=== PATIENT | male | born 1995 | race Caucasian/White ===

== ENCOUNTER 2020-05-27 07:28 | Emergency (ER) | payer BC ==
--- NOTE | 2020-05-27 08:01 | EDM.PDOC ---
ED HPI GENERAL MEDICAL PROBLEM - General Chief Complaint: Allergic Reaction Time Seen by Provider: 05/27/20 07:47 Source of Information: Reports: Patient, Family, RN Notes Reviewed History Limitations: Reports: No Limitations - History of Present Illness INITIAL COMMENTS - FREE TEXT/NARRATIVE: 25-year-old gentleman presents emergency department today with concern about allergic reaction he is developed some tingling on the left side of his face is been going on for 24 hours he denies any new medications denies any exposure denies any recent bug bites has no known allergies takes no medications himself. He is currently under a stressful situation as his dad recently a couple days ago. Left Face/Facial Pain Score (Numeric/FACES): 2 - Related Data Allergies Allergy/AdvReac Type Severity Reaction Status Date / Time No Known Allergies Allergy Verified 05/27/20 07:41 Home Meds: Home Meds NK [No Known Home Meds] 05/27/20 [History] Past Medical History Neurological History: Reports: Concussion - Past Surgical History Head Surgeries/Procedures: Reports: None Neurological Surgical History: Reports: None Dermatological Surgical History: Reports: None Social & Family History - Tobacco Use Smoking Status *Q: Never Smoker Second Hand Smoke Exposure: No - Caffeine Use Caffeine Use: Reports: Coffee - Recreational Drug Use Recreational Drug Use: No ED ROS ALLERGIC REACTION - Review of Systems Review Of Systems: See Below Constitutional: Reports: No Symptoms HEENT: Reports: No Symptoms Respiratory: Reports: No Symptoms Cardiovascular: Reports: No Symptoms GI/Abdominal: Reports: No Symptoms Skin: Denies: Rash Neurological: Reports: Tingling ED EXAM GENERAL NO PERIP PULSE - Physical Exam Exam: See Below Exam Limited By: No Limitations General Appearance: Alert, WD/WN, No Apparent Distress Eye Exam: Bilateral Eye: Normal Inspection, PERRL Nose: Normal Inspection, Normal Mucosa, No Blood Throat/Mouth: Normal Inspection, Normal Lips, Normal Teeth, Normal Gums, Normal Oropharynx, Normal Voice, No Airway Compromise Head: Atraumatic, Normocephalic Neck: Normal Inspection, Supple, Non-Tender, Full Range of Motion Respiratory/Chest: No Respiratory Distress, Lungs Clear, Normal Breath Sounds, No Accessory Muscle Use, Chest Non-Tender Cardiovascular: Regular Rate, Rhythm, No Murmur Skin Exam: Warm, Dry, Intact, Normal Color, No Rash Course - Vital Signs Last Recorded V/S: Last Vital Signs Temp 97.6 F 05/27/20 07:46 Pulse 72 05/27/20 07:46 Resp 14 05/27/20 07:46 BP 135/93 H 05/27/20 07:46 Pulse Ox 100 05/27/20 07:46 Departure - Departure Time of Disposition: 07:59 Disposition: Home, Self-Care 01 Condition: Fair Clinical Impression: Allergic reaction Qualifiers: Encounter type: initial encounter Qualified Code(s): T78.40XA - Allergy, unspecified, initial encounter - Discharge Information Instructions: Allergies, Adult, [id number] Referrals: PCP,None [Primary Care Provider] - Additional Instructions: Continue to use Benadryl as needed for symptomatic relief, please followup with your primary care provider in 3-5 days if not better, please call return to the emergency department with worsening of symptoms. Sepsis Event Note (ED) - Focused Exam Vital Signs: Vital Signs Temp Pulse Resp BP Pulse Ox 05/27/20 07:46 97.6 F 72 14 135/93 H 100 - Assessment/Plan Plan: Assessment Acuity = acute Site and laterality = allergic type reaction Etiology = unknown possibly related to social situation Manifestations = none Location of injury = Home Lab values = none Plan Recommended symptomatic care Benadryl as needed follow-up primary care 3 to 5 days if not better This note was dictated using [employer] voice recognition software please call with any questions on syntax or grammar.
== END 2020-05-27 08:06 | disposition home or self-care (01) ==
LOC: JP.ED 07:28
DX: T78.40XA Allergy, unspecified, initial encounter (principal)
CPT/HCPCS: 99283